=== PATIENT | male | born 1955 | race Caucasian/White ===

== ENCOUNTER 2017-02-28 08:59 | Emergency (ER) | payer OTHER ==
[~2017-02-28] VITALS: Ht 190.5 cm; Wt 105.0 kg
[2017-02-28 09:04] VITALS: BP 158/101; PULSE 68; RESP 18; TEMP 97.7; O2SAT 98
[2017-02-28] MEDS ORDERED: DICL1CAP3 PO (09:50)
[2017-02-28] MEDS ORDERED: VITA400T14 PO (09:50)
[2017-02-28] MEDS ORDERED: ASPI81CH CHEW (09:50)
[2017-02-28] MEDS ORDERED: ADAL1INJ SQ (09:50)
[2017-02-28] MEDS ORDERED: STOMACH PILL (09:50)
[2017-02-28] MEDS ORDERED: ASPIRIN 325 MG TAB PO ONE (10:15)
[2017-02-28 10:25] VITALS: BP 133/95; PULSE 55; RESP 20; O2SAT 98
[2017-02-28 10:47] LABS: AUTOMATED NEUTROPHIL # 1.5 TH/MM3 (1.8-7.7); BASOPHIL % 1.2 % (0.0-2.0); EOSINOPHIL # 0.3 TH/MM3 (0-0.4); HEMATOCRIT 39.9 % (39.0-51.0); HEMO FLAGS DIFF FINAL; LYMPH % 40.5 % (9.0-44.0); LYMPHOCYTE # 1.7 TH/MM3 (1.0-4.8); MEAN CELL VOLUME 87.9 FL (80.0-100.0); MEAN CORPUSCULAR HEMOGLOBIN 30.3 PG (27.0-34.0); MEAN CORPUSCULAR HGB CONC 34.4 % (32.0-36.0); MONO % 11.5 % (0.0-8.0); NEUT % 38.8 % (16.0-70.0); PLATELET COUNT 152 TH/MM3 (150-450); RED BLOOD COUNT 4.54 MIL/MM3 (4.50-5.90); RED CELL DISTRIBUTION WIDTH 11.5 % (11.6-17.2); WHITE BLOOD COUNT 3.9 TH/MM3 (4.0-11.0)
[2017-02-28 10:52] LABS: CHLORIDE 106 MEQ/L (98-107); POTASSIUM 4.6 MEQ/L (3.5-5.1); SODIUM (NA) 140 MEQ/L (136-145)
[2017-02-28 10:55] LABS: ANION GAP 6 MEQ/L (5-15); BICARBONATE 27.7 MEQ/L (21.0-32.0); BLOOD UREA NITROGEN 18 MG/DL (7-18)
[2017-02-28 10:59] LABS: GLOMERULAR FILTRATION RATE 80 ML/MIN (>89)
--- NOTE | 2017-02-28 11:04 | RADRPT ---
EXAM DATE/TIME: 02/28/2017 10:32 [facility] COMPARISON: No previous studies available for comparison. INDICATIONS : Chest Pain MEDICAL HISTORY : Hypertension. SURGICAL HISTORY : None. ENCOUNTER: Initial ACUITY: 1 year PAIN SCORE: 4/10 LOCATION: Bilateral chest FINDINGS: A single view of the chest demonstrates the lungs to be symmetrically aerated without evidence of mas s, infiltrate or effusion. The cardiomediastinal contours are unremarkable. Osseous structures are intact. CONCLUSION: No acute disease. Abelardo Aguayo MD FACR on February 28, 2017 at 11:02 Board Certified Radiologist. This report was verified electronically.
--- NOTE | 2017-02-28 11:29 | PD ---
HPI Chief Complaint: Chest Pain Time Seen by Provider: 09:49 Travel History International Travel<30 days: No Contact w/Intl Traveler<30days: No Traveled to known affect area: No History of Present Illness HPI This 61-year-old male presents with complaint of chest pain. He's been having pain in his chest off and on for double months. He is not sought any treatment for it. He does not smoke cigarettes, and he smokes pot occasionally. He does have family history of heart disease. His father at the age of 63 of a heart attack. The pain he has is not exertional. It is on the left side of the chest. It is brought on by stress. It can last for hours at a time. There is no associated shortness of breath. There is no diaphoresis. Pain seems to ease up when he raises his arms over his head. He is a disabled secondary to rheumatoid arthritis [facility] Past Medical History GERD: Yes Hypertension: Yes Medical other: Yes (PSORIATIC ARTHRITIS, RA) Past Surgical History Other Surgery: Yes (NOSE, FATTY TUMORS REMOVED) Social History Alcohol Use: Yes Tobacco Use: No Substance Use: Yes (MARIJUANA) Allergies-Medications (Allergen,Severity, Reaction): Coded Allergies: gabapentin (Verified Allergy, Unknown, 02/28/17) Reported Meds & Prescriptions Reported Meds & Active Scripts Active Reported Humira 2-Pack Inj (Adalimumab 2-Pack Inj) 10 Mg/0.2 Ml Syr Unknown Dose SQ Q14D Vitamin D2 (Ergocalciferol) 400 Unit Tab Unknown Dose PO DAILY Aspirin 81 Mg Chew Unknown Dose CHEW DAILY [Stomach Pill] Zorvolex (Diclofenac) 18 Mg Cap Unknown Dose PO TID Review of Systems General / Constitutional: No: Fever, Chills Eyes: No: Diploplia, Blurred Vision HENT: No: Headaches, Vertigo Cardiovascular: Positive: Chest Pain or Discomfort, No: Palpitations, Edema Respiratory: No: Cough Gastrointestinal: No: Vomiting, Diarrhea Genitourinary: No: Urgency, Frequency Musculoskeletal: No: Myalgias, Arthralgias Skin: No Rash, No Itching Neurologic: No: Weakness Psychiatric: No: Anxiety, Substance Abuse Hematologic/Lymphatic: No: Easy Bruising Physical Exam Narrative GENERAL: Well-developed male SKIN: Focused skin assessment warm/dry. HEAD: Atraumatic. Normocephalic. EYES: Pupils equal and round. No scleral icterus. No injection or drainage. ENT: No nasal bleeding or discharge. Mucous membranes pink and moist. NECK: Trachea midline. No JVD. CARDIOVASCULAR: Regular rate and rhythm. No murmur appreciated. RESPIRATORY: No accessory muscle use. Clear to auscultation. Breath sounds equal bilaterally. There is some tenderness in the left costochondral area GASTROINTESTINAL: Abdomen soft, non-tender, nondistended. Hepatic and splenic margins not palpable. MUSCULOSKELETAL: No obvious deformities. No clubbing. No cyanosis. No edema. NEUROLOGICAL: Awake and alert. No obvious cranial nerve deficits. Motor grossly within normal limits. Normal speech. PSYCHIATRIC: Appropriate mood and affect; insight and judgment normal. Data Data Last Documented VS Vital Signs Date Time Temp Pulse Resp B/P (MAP) Pulse Ox O2 Delivery O2 Flow Rate FiO2 02/28/17 10:25 55 20 133/95 (108) 98 02/28/17 09:04 97.7 Orders Orders Electrocardiogram (02/28/17 10:03) Complete Blood Count With Diff (02/28/17 10:03) Basic Metabolic Panel (Bmp) (02/28/17 10:03) Troponin I (02/28/17 10:03) Chest, Single Ap (02/28/17 10:03) Aspirin (Aspirin) (02/28/17 10:15) Labs Laboratory Tests Test 02/28/17 10:20 White Blood Count 3.9 TH/MM3 Red Blood Count 4.54 MIL/MM3 Hemoglobin 13.7 GM/DL Hematocrit 39.9 % Mean Corpuscular Volume 87.9 FL Mean Corpuscular Hemoglobin 30.3 PG Mean Corpuscular Hemoglobin Concent 34.4 % Red Cell Distribution Width 11.5 % Platelet Count 152 TH/MM3 Mean Platelet Volume 8.6 FL Neutrophils (%) (Auto) 38.8 % Lymphocytes (%) (Auto) 40.5 % Monocytes (%) (Auto) 11.5 % Eosinophils (%) (Auto) 8.0 % Basophils (%) (Auto) 1.2 % Neutrophils # (Auto) 1.5 TH/MM3 Lymphocytes # (Auto) 1.7 TH/MM3 Monocytes # (Auto) 0.4 TH/MM3 Eosinophils # (Auto) 0.3 TH/MM3 Basophils # (Auto) 0.0 TH/MM3 CBC Comment DIFF FINAL Differential Comment Blood Urea Nitrogen 18 MG/DL Creatinine 0.96 MG/DL Random Glucose 89 MG/DL Calcium Level 8.7 MG/DL Sodium Level 140 MEQ/L Potassium Level 4.6 MEQ/L Chloride Level 106 MEQ/L Carbon Dioxide Level 27.7 MEQ/L Anion Gap 6 MEQ/L Estimat Glomerular Filtration Rate 80 ML/MIN Troponin I LESS THAN 0.02 NG/ML MDM Medical Decision Making Medical Screen Exam Complete: Yes Emergency Medical Condition: Yes Medical Record Reviewed: Yes Differential Diagnosis Differential includes chest wall pain, coronary artery disease Narrative Course Chest x-ray is negative. EKG normal sinus rhythm. Troponin is normal. I discussed chest pain center admission with the patient however he has to care for his mother at this time. His pain is been fairly stable for some time and I think he can be followed up as an outpatient. [facility]. I have advised him to return if increasing chest pain. His pain is somewhat atypical and I suspect it might be chest wall pain related to rheumatoid arthritis. Diagnosis Primary Impression: Chest pain Qualified Codes: R07.9 - Chest pain, unspecified Additional Instructions: Return if increasing chest pain. [facility] Dis[facility] 01 DISCHARGE HOME Condition: Stable Paul Wu MD Feb 28, 2017 11:29
[2017-03-01] MEDS ORDERED: OMEP40CA2 PO (09:49)
--- NOTE | 2017-03-01 13:10 | EKG ---
Date Performed: 02/28/2017 Time Performed: 09:14:24 PTAGE: 61 years EKG: NO FURTHER INTERPRETATION POSSIBLE ATYPICAL ECG WARNING: DATA QUALITY MAY AFFECT INTERPRETA TION NO PREVIOUS TRACING DOCTOR: Lindy Keyes Interpretating Date/Time 03/01/2017 13:07:59
== END 2017-02-28 11:40 | disposition home or self-care (01) ==
LOC: PHED 08:59
DX: R07.9 Chest pain, unspecified (principal); M06.9 Rheumatoid arthritis, unspecified; I10 Essential (primary) hypertension; Z87.39 Personal history of other diseases of the musculoskeletal system and connective tissue; Z87.19 Personal history of other diseases of the digestive system
CPT/HCPCS: 71010; 80048; 84484; 85025; 93005; 99285

== ENCOUNTER 2017-03-01 09:24 | Observation (INO) | payer OTHER ==
[2017-03-01] VITALS (8 sets, daily range): BP systolic 133–144; BP diastolic 93–99; PULSE 58–66; RESP 16–20; TEMP 97.2–98.4; O2SAT 94–98
[~2017-03-01] VITALS: Ht 190.5 cm; Wt 104.2 kg
[~2017-03-01 09:24] MED LIST: ADAL1INJ SQ; ASPI81CH CHEW; DICL1CAP3 PO; STOMACH PILL; VITA400T14 PO
[2017-03-01] MEDS ORDERED: OMEP40CA2 PO (09:49)
[2017-03-01] MEDS ORDERED: ASPIRIN 81 MG CHEW TAB PO ONE (10:00)
[2017-03-01] MEDS ORDERED: NITROGLYCERIN 0.4 MG SL 25 TABS/BTL SL ONE (10:00)
[2017-03-01] MEDS ORDERED: SODIUM CHLORIDE 0.9% FLUSH 10 ML FLUSH IVF PRN (10:00)
--- NOTE | 2017-03-01 10:07 | PD ---
HPI Chief Complaint: Chest Pain Time Seen by Provider: 09:40 Travel History International Travel<30 days: No Contact w/Intl Traveler<30days: No Traveled to known affect area: No History of Present Illness HPI 61 y/o male presents with continued chest pain since he was here yesterday. He states he was able to talk with his mother and arrange care so he is back today to get further testing. He confirms that he has been having chest pain intermittently for a couple months. He states that currently is 4 out of 10. He took a baby aspirin prior to arrival. He denies having any prior cardiac workup. His cardiac risk factors or hypertension, age, family history. Quality of pain is pressure. Location is left chest and arm. He denies specific modifying factors other than worse with stress. PFSH Past Medical History Diminished Hearing: No GERD: Yes Hypertension: Yes Tetanus Vaccination: Unknown Influenza Vaccination: No Past Surgical History Other Surgery: Yes (NOSE, FATTY TUMORS REMOVED) Social History Alcohol Use: Yes Tobacco Use: No Substance Use: Yes (MARIJUANA) Allergies-Medications (Allergen,Severity, Reaction): Coded Allergies: gabapentin (Verified Allergy, Unknown, 02/28/17) Reported Meds & Prescriptions Reported Meds & Active Scripts Active Reported Omeprazole 40 Mg Cap 40 Mg PO DAILY Humira 2-Pack Inj (Adalimumab 2-Pack Inj) 10 Mg/0.2 Ml Syr Unknown Dose SQ Q14D Vitamin D2 (Ergocalciferol) 400 Unit Tab Unknown Dose PO DAILY Aspirin 81 Mg Chew Unknown Dose CHEW DAILY Zorvolex (Diclofenac) 18 Mg Cap Unknown Dose PO TID Review of Systems Except as stated in HPI: all other systems reviewed are Neg Physical Exam Narrative GENERAL: Well-nourished, well-developed patient. SKIN: Warm and dry. HEAD: Normocephalic and atraumatic. EYES: No injection or drainage. ENT: No nasal drainage noted. NECK: Supple, trachea midline. CARDIOVASCULAR: Regular rate and rhythm RESPIRATORY: Breath sounds equal bilaterally. No accessory muscle use. GASTROINTESTINAL: Abdomen soft, non-tender, nondistended. EXTREMITIES: No edema. BACK: Nontender without obvious deformity. NEUROLOGICAL: Awake and alert. Motor and sensory grossly within normal limits. Normal speech. Data Data Last Documented VS Vital Signs Date Time Temp Pulse Resp B/P (MAP) Pulse Ox O2 Delivery O2 Flow Rate FiO2 03/01/17 10:03 97 03/01/17 09:50 59 16 03/01/17 09:45 98.1 Orders Orders Electrocardiogram (03/01/17 09:49) Ckmb (Isoenzyme) Profile (03/01/17 09:49) Complete Blood Count With Diff (03/01/17 09:49) Comprehensive Metabolic Panel (03/01/17 09:49) Magnesium (Mg) (03/01/17 09:49) Prothrombin Time / Inr (Pt) (03/01/17 09:49) Act Partial Throm Time (Ptt) (03/01/17 09:49) Troponin I (03/01/17 09:49) Lipase (03/01/17 09:49) Chest, Single Ap (03/01/17 09:49) Ecg Monitoring (03/01/17 09:49) Bilateral Bp Monitoring (03/01/17 09:49) Iv Access Insert/Monitor (03/01/17 09:49) Oximetry (03/01/17 09:49) Aspirin Chew (Aspirin Chew) (03/01/17 10:00) Sodium Chloride 0.9% Flush (Ns Flush) (03/01/17 10:00) Nitroglycerin Sl (Nitrostat Sl) (03/01/17 10:00) Place In Observation (03/01/17 11:12) Activity Bed Rest With Brp (03/01/17 11:12) Vital Signs (Adult) Q4H (03/01/17 11:12) Cardiac Rhythm .As Directed (03/01/17 11:12) Notify Dr: Other .PRN (03/01/17 11:12) Notify Parameters (03/01/17 11:12) Resp Oxygen Nasal Cannula (03/01/17 ) Diet Heart Healthy (03/01/17 Lunch) Electrocardiogram (03/01/17 11:12) Electrocardiogram (03/01/17 14:12) ^ Obtain (03/01/17 11:12) Sodium Chloride 0.9% Flush (Ns Flush) (03/01/17 11:15) Sodium Chloride 0.9% Flush (Ns Flush) (03/01/17 21:00) Acetaminophen (Tylenol) (03/01/17 11:15) Ondansetron Inj (Zofran Inj) (03/01/17 11:15) Nitroglycerin Sl (Nitrostat Sl) (03/01/17 11:15) Aspirin (Aspirin) (03/02/17 09:00) Project Scientist / Telemetry CHANEL.Q8H (03/01/17 11:12) Scd Bilateral/Knee High CHANEL.BID (03/01/17 11:12) Admit Order (Ed Use Only) (03/01/17 11:13) Troponin I (03/01/17 13:00) Troponin I (03/01/17 16:00) Electrocardiogram (03/01/17 13:00) Electrocardiogram (03/01/17 16:00) Labs Laboratory Tests Test 03/01/17 10:01 White Blood Count 4.1 TH/MM3 Red Blood Count 4.94 MIL/MM3 Hemoglobin 14.5 GM/DL Hematocrit 43.8 % Mean Corpuscular Volume 88.7 FL Mean Corpuscular Hemoglobin 29.3 PG Mean Corpuscular Hemoglobin Concent 33.0 % Red Cell Distribution Width 11.9 % Platelet Count 177 TH/MM3 Mean Platelet Volume 8.8 FL Neutrophils (%) (Auto) 39.2 % Lymphocytes (%) (Auto) 41.6 % Monocytes (%) (Auto) 10.0 % Eosinophils (%) (Auto) 8.2 % Basophils (%) (Auto) 1.0 % Neutrophils # (Auto) 1.6 TH/MM3 Lymphocytes # (Auto) 1.8 TH/MM3 Monocytes # (Auto) 0.4 TH/MM3 Eosinophils # (Auto) 0.3 TH/MM3 Basophils # (Auto) 0.0 TH/MM3 CBC Comment DIFF FINAL Differential Comment Prothrombin Time 10.9 SEC Prothromb Time International Ratio 1.0 RATIO Activated Partial Thromboplast Time 27.3 SEC Blood Urea Nitrogen 18 MG/DL Creatinine 0.93 MG/DL Random Glucose 93 MG/DL Total Protein 7.6 GM/DL Albumin 3.7 GM/DL Calcium Level 8.4 MG/DL Magnesium Level 2.1 MG/DL Alkaline Phosphatase 55 U/L Aspartate Amino Transf (AST/SGOT) 14 U/L Alanine Aminotransferase (ALT/SGPT) 19 U/L Total Bilirubin 0.4 MG/DL Sodium Level 140 MEQ/L Potassium Level 4.0 MEQ/L Chloride Level 106 MEQ/L Carbon Dioxide Level 26.3 MEQ/L Anion Gap 8 MEQ/L Estimat Glomerular Filtration Rate 83 ML/MIN Total Creatine Kinase 100 U/L Troponin I LESS THAN 0.02 NG/ML Lipase 173 U/L MDM Medical Decision Making Medical Screen Exam Complete: Yes Emergency Medical Condition: Yes Medical Record Reviewed: Yes (past history confirmed, visit from yesterday reviewed) Interpretation(s) EKG shows sinus bradycardia at 55, no ST elevation or depression, and no arrhythmias. No significant T-wave inversions. CBC & BMP Diagram 03/01/17 10:01 Total Protein 7.6, Albumin 3.7, Calcium Level 8.4 L, Magnesium Level 2.1, Alkaline Phosphatase 55, Aspartate Amino Transf (AST/SGOT) 14 L, Alanine Aminotransferase (ALT/SGPT) 19, Total Bilirubin 0.4 Last 24 hours Impressions Chest X-Ray 03/01/17 0949 Signed Impressions: Service Date/Time: Wednesday, March 01, 2017 09:55 - CONCLUSION: No acute disease. No significant change has occurred. Jerel Ocasio MD Differential Diagnosis Cardiac, musculoskeletal, gastritis Narrative Course Will check blood work, chest x-ray, EKG and dose with aspirin and nitroglycerin and reevaluate Initial ER testing is negative here, agrees to chest pain center observation Physician Communication Physician Communication dr chadwick agrees to observation Diagnosis Primary Impression: Chest pain Qualified Codes: R07.9 - Chest pain, unspecified Admitting Information Admitting Physician Requests: Observation Brunilda Gil MD Mar 01, 2017 10:06
[2017-03-01 10:10] LABS: AUTOMATED NEUTROPHIL # 1.6 TH/MM3 (1.8-7.7); EOSINOPHIL # 0.3 TH/MM3 (0-0.4); EOSINOPHIL % 8.2 % (0.0-4.0); HEMATOCRIT 43.8 % (39.0-51.0); HEMO FLAGS DIFF FINAL; LYMPH % 41.6 % (9.0-44.0); LYMPHOCYTE # 1.8 TH/MM3 (1.0-4.8); MEAN CELL VOLUME 88.7 FL (80.0-100.0); MEAN CORPUSCULAR HEMOGLOBIN 29.3 PG (27.0-34.0); NEUT % 39.2 % (16.0-70.0); PLATELET COUNT 177 TH/MM3 (150-450); RED BLOOD COUNT 4.94 MIL/MM3 (4.50-5.90); RED CELL DISTRIBUTION WIDTH 11.9 % (11.6-17.2); WHITE BLOOD COUNT 4.1 TH/MM3 (4.0-11.0)
--- NOTE | 2017-03-01 10:15 | RADRPT ---
EXAM DATE/TIME: 03/01/2017 09:55 [facility] COMPARISON: CHEST SINGLE AP, February 28, 2017, 10:32. INDICATIONS : Continued left side chest pain after being seen here yesterday. MEDICAL HISTORY : Hypertension. Gastroesophageal reflux disease. Psoriatic Arthritis. SURGICAL HISTORY : Fused right wrist. ENCOUNTER: [facility] ACUITY: 2 days PAIN SCORE: 4/10 LOCATION: Left chest FINDINGS: A single view of the chest demonstrates the lungs to be symmetrically aerated without evidence of mas s, infiltrate or effusion. The cardiomediastinal contours are unremarkable. Osseous structures are intact. CONCLUSION: No acute disease. No significant change has occurred. Jerel Ocasio MD on March 01, 2017 at 10:13 Board Certified Radiologist. This report was verified electronically.
[2017-03-01 10:18] LABS: CHLORIDE 106 MEQ/L (98-107); SODIUM (NA) 140 MEQ/L (136-145)
[2017-03-01 10:23] LABS: ANION GAP 8 MEQ/L (5-15); APTT (PATIENT) 27.3 SEC (24.3-30.1); BICARBONATE 26.3 MEQ/L (21.0-32.0); BLOOD UREA NITROGEN 18 MG/DL (7-18); MAGNESIUM 2.1 MG/DL (1.5-2.5); PROTHROMBIN TIME - PATIENT 10.9 SEC (9.8-11.6)
[2017-03-01 10:25] LABS: ALT (GPT) 19 U/L (12-78); AST (GOT) 14 U/L (15-37)
[2017-03-01 10:26] LABS: GLOMERULAR FILTRATION RATE 83 ML/MIN (>89)
[2017-03-01 10:27] LABS: TOTAL BILIRUBIN ADULT 0.4 MG/DL (0.2-1.0)
[2017-03-01 10:28] LABS: ALKALINE PHOSPHATASE 55 U/L (45-117)
[2017-03-01 10:55] LABS: CREATINE KINASE 100 U/L (39-308)
[2017-03-01] MEDS ORDERED: NITROGLYCERIN 0.4 MG SL 25 TABS/BTL SL PRN (11:15)
[2017-03-01] MEDS ORDERED: SODIUM CHLORIDE 0.9% FLUSH 10 ML FLUSH IV FLUSH PRN (11:15)
[2017-03-01] MEDS ORDERED: ONDANSETRON HCL 4 MG/2 ML VIAL IV PRN (11:15)
[2017-03-01] MEDS ORDERED: ACETAMINOPHEN 500 MG CPLT PO PRN (11:15)
--- NOTE | 2017-03-01 14:11 | HHI.HP ---
[facility] Service [place] [facility] Primary Care Physician Luz Elena [facility] Admission Diagnosis chest pain Diagnoses: Chief Complaint: Chest pain. Travel History International Travel<30 Days: No Contact w/Intl Traveler <30 Da: No Traveled to Known Affected Are: No History of Present Illness Mr. Harrington is a pleasant 61 year old with a history of rheumatoid arthritis who presents to the ED due to chronic chest pain. Patient came to the emergency department yesterday and was offered stress test. However he takes care of his elderly mother and and thus went home yesterday. Patient reports a stabbing constant left-sided chest pain that has been going on for almost 1 year. Sometimes he feels pain on his left upper extremity. Any kind of aggravation makes his pain worse. On the other hand when he rides his motorcycle, he feels relief of his chest discomfort. He reports no worsening of symptoms with exertion. He also gets relief of chest discomfort when he moves his left arm above his head. He denies any nausea or vomiting or diaphoresis associated with this chest discomfort. He has been worried about chest pain since his father from a heart attack at the age of 63. Patient denies any changes in bowel or bladder habits. Denies any cough, fever or chills. Review of Systems Except as stated in HPI: all other systems reviewed are Neg Past Family Social History Past Medical History Rheumatoid arthritis Osteoarthritis Tendinitis Bilateral foot neuropathy Past Surgical History Lipoma removal Right third toe surgery Surgery on nose after accident. Reported Medications Omeprazole 40 Mg Cap 40 Mg PO DAILY Humira 2-Pack Inj (Adalimumab 2-Pack Inj) 10 Mg/0.2 Ml Syr Unknown Dose SQ Q14D Vitamin D2 (Ergocalciferol) 400 Unit Tab Unknown Dose PO DAILY Aspirin 81 Mg Chew Unknown Dose CHEW DAILY Zorvolex (Diclofenac) 18 Mg Cap Unknown Dose PO TID Allergies: Coded Allergies: gabapentin (Verified Allergy, Unknown, 02/28/17) Family History Father from myocardial infarction at age 63. Mother is 80 and is in relatively good health. Social History Patient does not use tobacco products. He smokes marijuana daily. Drinks alcohol occasionally. Physical Exam Vital Signs Vital Signs Date Time Temp Pulse Resp B/P (MAP) Pulse Ox O2 Delivery O2 Flow Rate FiO2 03/01/17 12:19 03/01/17 10:03 97 03/01/17 09:55 144/93 (110) 03/01/17 09:50 59 16 99 03/01/17 09:45 98.1 63 16 140/95 (110) 98 Physical Exam GENERAL: This is a well-nourished, well-developed patient, in no apparent distress. SKIN: No rashes, ecchymoses or lesions. Warm and dry. HEAD: Atraumatic. Normocephalic. No temporal or scalp tenderness. EYES: Pupils equal round and reactive. No injection or drainage. ENT: Nose without bleeding, purulent drainage or septal hematoma. Airway patent. NECK: Trachea midline. No lymphadenopathy. Supple, nontender, no meningeal signs. CARDIOVASCULAR: Regular rate and rhythm without murmurs, gallops, or rubs. No JVD. RESPIRATORY: Clear to auscultation. Breath sounds equal bilaterally. No wheezes , rales, or rhonchi. GASTROINTESTINAL: Abdomen soft, non-tender, nondistended. No guarding. MUSCULOSKELETAL: Extremities without clubbing, cyanosis, or edema. NEUROLOGICAL: Awake and alert. Cranial nerves II through XII intact. No focal neurological deficits. Normal speech. Laboratory Laboratory Tests Test 03/01/17 10:01 03/01/17 13:30 White Blood Count 4.1 Red Blood Count 4.94 Hemoglobin 14.5 Hematocrit 43.8 Mean Corpuscular Volume 88.7 Mean Corpuscular Hemoglobin 29.3 Mean Corpuscular Hemoglobin Concent 33.0 Red Cell Distribution Width 11.9 Platelet Count 177 Mean Platelet Volume 8.8 Neutrophils (%) (Auto) 39.2 Lymphocytes (%) (Auto) 41.6 Monocytes (%) (Auto) 10.0 Eosinophils (%) (Auto) 8.2 Basophils (%) (Auto) 1.0 Neutrophils # (Auto) 1.6 Lymphocytes # (Auto) 1.8 Monocytes # (Auto) 0.4 Eosinophils # (Auto) 0.3 Basophils # (Auto) 0.0 CBC Comment DIFF FINAL Differential Comment Prothrombin Time 10.9 Prothromb Time International Ratio 1.0 Activated Partial Thromboplast Time 27.3 Blood Urea Nitrogen 18 Creatinine 0.93 Random Glucose 93 Total Protein 7.6 Albumin 3.7 Calcium Level 8.4 Magnesium Level 2.1 Alkaline Phosphatase 55 Aspartate Amino Transf (AST/SGOT) 14 Alanine Aminotransferase (ALT/SGPT) 19 Total Bilirubin 0.4 Sodium Level 140 Potassium Level 4.0 Chloride Level 106 Carbon Dioxide Level 26.3 Anion Gap 8 Estimat Glomerular Filtration Rate 83 Total Creatine Kinase 100 Troponin I LESS THAN 0.02 Lipase 173 Result Diagram: 03/01/17 1001 03/01/17 1001 Imaging Last Impressions Chest X-Ray 03/01/17 0949 Signed Impressions: Service Date/Time: Wednesday, March 01, 2017 09:55 - CONCLUSION: No acute disease. No significant change has occurred. MD Adarsh Sesay VTE Risk Assessment Adarsh VTE Risk Assessment: No/Low Risk (score <= 1) Caprini Risk Assessment Model Point Value = 1 Point Value = 2 Point Value = 3 Point Value = 5 Age 41-60 Minor surgery BMI > 25 kg/m2 Swollen legs Varicose veins or History of unexplained or recurrent spontaneous Oral contraceptives or hormone replacement Sepsis (< 1 month) Serious lung disease, including pneumonia (< 1 month) Abnormal pulmonary function Acute myocardial infarction Congestive heart failure (< 1 month) History of inflammatory bowel disease Medical patient at bed rest Age 61-74 Arthroscopic surgery Major open surgery (> 45 min) Laparoscopic surgery (> 45 min) Malignancy Confined to bed (> 72 hours) Immobilizing plaster cast Central venous access Age >= 75 History of VTE Family history of VTE Factor V Leiden Prothrombin [id number] Lupus anticoagulant Anticardiolipin antibodies Elevated serum homocysteine Heparin-induced thrombocytopenia Other congenital or acquired thrombophilia Stroke (< 1 month) Elective arthroplasty Hip, pelvis, or leg fracture Acute spinal cord injury (< 1 month) Prophylaxis Regimen Total Risk Factor Score Risk Level Prophylaxis Regimen 0-1 Low Early ambulation 2 Moderate Order ONE of the following: *Sequential Compression Device (SCD) *Heparin 5000 units SQ BID 3-4 Higher Order ONE of the following medications: *Heparin 5000 units SQ TID *Enoxaparin/Lovenox 40 mg SQ daily (WT < 150 kg, CrCl > 30 mL/min) *Enoxaparin/Lovenox 30 mg SQ daily (WT < 150 kg, CrCl > 10-29 mL/min) *Enoxaparin/Lovenox 30 mg SQ BID (WT < 150 kg, CrCl > 30 mL/min) AND/OR *Sequential Compression Device (SCD) 5 or more Highest Order ONE of the following medications: *Heparin 5000 units SQ TID (Preferred with Epidurals) *Enoxaparin/Lovenox 40 mg SQ daily (WT < 150 kg, CrCl > 30 mL/min) *Enoxaparin/Lovenox 30 mg SQ daily (WT < 150 kg, CrCl > 10-29 mL/min) *Enoxaparin/Lovenox 30 mg SQ BID (WT < 150 kg, CrCl > 30 mL/min) AND *Sequential Compression Device (SCD) Assessment and Plan Problem List: (1) Osteoarthritis ICD Code: M19.90 - Unspecified osteoarthritis, unspecified site (2) Rheumatoid arthritis ICD Code: M06.9 - Rheumatoid arthritis, unspecified (3) Chest pain ICD Code: R07.9 - Chest pain, unspecified Status: Acute Assessment and Plan Mr. Harrington is a pleasant 61-year-old who presents to the emergency department due to chronic chest discomfort. His chest discomfort has mostly atypical features. However due to history of rheumatoid arthritis as well as family history of heart disease patient was admitted for further workup. - Chest pain - Mostly atypical features. However increased risk due to age, family history, rheumatoid arthritis, smoking. - Chest x-ray reviewed by me. Shows no acute abnormalities. Reviewed labs including CBC and CMP. - Continue aspirin 81 mg daily. Patient received aspirin 243 mg in the emergency department. - Nitroglycerin sublingual when necessary - We'll obtain a nuclear perfusion study in the morning. - Also obtain lipid profile in the morning. - Rheumatoid arthritis - Osteoarthritis - Patient can continue home medications including Humira upon discharge. Full code. SCDs. Likely discharge tomorrow after Nuclear perfusion study. Problem Qualifiers (1) Chest pain: Qualified Codes: R07.9 - Chest pain, unspecified Heike Mak DO Mar 01, 2017 14:11
[2017-03-01] MEDS: SODIUM CHLORIDE 0.9% FLUSH 10 ML FLUSH IV FLUSH SCH (21:52)
[2017-03-02] VITALS: BP 128/91; PULSE 59; RESP 18; TEMP 97.7; O2SAT 98
[2017-03-02 04:00] VITALS: BP 142/92; PULSE 60; RESP 18; TEMP 97.7; O2SAT 96
[2017-03-02 07:00] VITALS: PULSE 58
[2017-03-02 08:00] VITALS: BP 136/87; PULSE 63; RESP 18; TEMP 97.6; O2SAT 97
[2017-03-02 08:20] VITALS: O2SAT 94
[2017-03-02] MEDS: SODIUM CHLORIDE 0.9% FLUSH 10 ML FLUSH IV FLUSH SCH (08:44)
[2017-03-02] MEDS ORDERED: ASPIRIN 81 MG CHEW TAB PO SCH (09:00)
[2017-03-02] MEDS ORDERED: PANTOPRAZOLE SOD 40 MG DELAYED RELEASE TAB PO SCH (09:00)
[2017-03-02] MEDS ORDERED: INFLUENZA VIRUS VACCINE (QUADRIVALENT) 0.5 ML SYR IM ONE (10:00)
--- NOTE | 2017-03-02 10:51 | RADRPT ---
EXAM DATE/TIME: 03/02/2017 09:17 [facility] COMPARISON: No previous studies available for comparison. INDICATIONS : Left sided chest pain radiating to the left arm. Angina. DOSE: 35 mCi Tc99m Myoview at stress. 11 mCi Tc99m Myoview at rest. 0.4 mg Lexiscan STRESS SYMPTOMS: Flushed. EJECTION FRACTION: 58% MEDICAL HISTORY : Hypertension. SURGICAL HISTORY : Right foot surgery. ENCOUNTER: Initial ACUITY: 1 day PAIN SCALE: 4/10 LOCATION: Left chest TECHNIQUE: The patient underwent pharmacologic stress with infusion of prescribed dose. Continuous ECG tracing was monitored during stress. Gated SPECT imaging was performed after stress and conventional SPECT i maging was performed at rest. The examination was performed on a SPECT/CT scanner, both attenuation and non-corrected datasets were reviewed. FINDINGS: DISTRIBUTION: The maximum perfused segment at stress is in the lateral wall and septum. Moderate gut activity does obscure the inferior wall. There is no redistribution. GATED STUDY: There is intact wall motion and thickening without hypokinetic or dyskinetic segments. CONCLUSION: Negative for stress-induced ischemia. RISK CATEGORY: Low (<1% Annual Mortality Rate) Abelardo Aguayo MD FACR on March 02, 2017 at 10:48 Board Certified Radiologist. This report was verified electronically.
--- NOTE | 2017-03-02 10:59 | HHI.DCPOC ---
Discharge Care Plan Diagnosis: (1) Chest pain Your Health Problems Are: Chest Pain Goals to Promote Your Health * To prevent worsening of your condition and complications * To maintain your health at the optimal level Directions to Meet Your Goals Take your medications as prescribed Follow your dietary instruction Follow activity as directed Keep your appointments as scheduled Take your immunizations and boosters as scheduled If your symptoms worsen call your PCP, if no PCP go to Urgent Care Center or Emergency Room Smoking is Dangerous to Your Health. Avoid second hand smoke Call the 24-hour hour crisis hotline for domestic abuse at Jon Brown Mar 02, 2017 10:59
[2017-03-02] MEDS ORDERED: REGADENOSON INJ 0.4 MG/5 ML SYR IV ONE (11:16)
[2017-03-02 12:00] VITALS: BP 137/88; PULSE 64; RESP 18; TEMP 97.5; O2SAT 95
--- NOTE | 2017-03-02 12:29 | HHI.DS ---
Discharge Summary Admission Date Mar 01, 2017 at 11:15 Discharge Date: Mar 02, 2017 Admitting Diagnosis chest pain (1) Osteoarthritis ICD Code: M19.90 - Unspecified osteoarthritis, unspecified site (2) Rheumatoid arthritis ICD Code: M06.9 - Rheumatoid arthritis, unspecified (3) Chest pain ICD Code: R07.9 - Chest pain, unspecified Status: Acute Procedures none Brief History - From Admission Mr. Harrington is a pleasant 61 year old [place] with a history of rheumatoid arthritis who presents to the ED due to chronic chest pain. Patient came to the emergency department yesterday and was offered stress test. However he takes care of his elderly mother and and thus went home yesterday. Patient reports a stabbing constant left-sided chest pain that has been going on for almost 1 year. Sometimes he feels pain on his left upper extremity. Any kind of aggravation makes his pain worse. On the other hand when he rides his motorcycle, he feels relief of his chest discomfort. He reports no worsening of symptoms with exertion. He also gets relief of chest discomfort when he moves his left arm above his head. He denies any nausea or vomiting or diaphoresis associated with this chest discomfort. He has been worried about chest pain since his father from a heart attack at the age of 63. Patient denies any changes in bowel or bladder habits. Denies any cough, fever or chills. CBC/BMP: 03/01/17 1001 03/01/17 1001 Significant Findings Laboratory Tests Test 03/01/17 10:01 03/01/17 13:30 03/01/17 16:05 03/02/17 07:55 Monocytes (%) (Auto) 10.0 % (0.0-8.0) Eosinophils (%) (Auto) 8.2 % (0.0-4.0) Neutrophils # (Auto) 1.6 TH/MM3 (1.8-7.7) Calcium Level 8.4 MG/DL (8.5-10.1) Aspartate Amino Transf (AST/SGOT) 14 U/L (15-37) Estimat Glomerular Filtration Rate 83 ML/MIN (>89) Troponin I LESS THAN 0.02 NG/ML LESS THAN 0.02 NG/ML LESS THAN 0.02 NG/ML LDL Cholesterol 108 MG/DL (0-99) Imaging Last Impressions Myocardial Perfusion Scan Nuc Med 03/02/17 0600 Signed Impressions: Service Date/Time: Thursday, March 02, 2017 09:17 - CONCLUSION: Negative for stress-induced ischemia. RISK CATEGORY: Low (<1%% Annual Mortality Rate) Abelardo Aguayo MD FACR Chest X-Ray 03/01/17 0949 Signed Impressions: Service Date/Time: Wednesday, March 01, 2017 09:55 - CONCLUSION: No acute disease. No significant change has occurred. Jerel Ocasio MD PE at Discharge cardiac: rrr, no murmurs resp: cta x 2 gen: NAD msk: no TTP noted over left chest wall, neg leftsided person test Hospital Course pt was admitted, monitored on telemetry, underwent nuclear stress test which was negative. stable vss throughout stay, remained w/ chronic chest pain w/ no substantial worsening on exertion. Deemed clinically stable for discharge, has met maximum benefit from hospitalization. Pt Condition on Discharge: Good Discharge Disposition: Discharge Home Discharge Time: <= 30 minutes Discharge Instructions DIET: Follow Instructions for: Heart Healthy Diet Activities you can perform: Regular-No Restrictions Follow up Referrals: PCP Follow-up - 1 Week Continued Medications: Adalimumab 2-Pack Inj (Humira 2-Pack Inj) 10 Mg/0.2 Ml Syr Unknown Dose SQ Q14D, #1 KIT 0 Refills Aspirin (Aspirin) 81 Mg Chew Unknown Dose CHEW DAILY, TAB 0 Refills Diclofenac (Zorvolex) 18 Mg Cap Unknown Dose PO TID for Pain Management, CAP 0 Refills Ergocalciferol (Vitamin D2) 400 Unit Tab Unknown Dose PO DAILY for Nutritional Supplement, TAB 0 Refills Omeprazole (Omeprazole) 40 Mg Cap 40 MG PO DAILY, #30 CAP 0 Refills Jonh Power MD Mar 02, 2017 12:28
--- NOTE | 2017-03-03 18:18 | TR ---
Date Performed: 03/02/2017 Time Performed: 09:45:43 DOCTOR: Ashanti Ponce DRUG LIST: CLINICAL HISTORY: REASON FOR TEST: REASON FOR ENDING: OBSERVATION: CONCLUSION: Lexiscan stress test was performed under standard four minute protocol. Radionuclid e was injected one minute prior to ending the test. No electrocardiographic abormalities were present to suggest ischemia. Nuclear imaging and interpretation are pending. COMMENTS:
--- NOTE | 2017-03-03 18:23 | EKG ---
Date Performed: 03/01/2017 Time Performed: 16:00:04 PTAGE: 61 years EKG: SINUS BRADYCARDIA BORDERLINE ECG Since PREVIOUS TRACING , no significant change noted PREVIOUS TRACIN03/01/2017 13.42 DOCTOR: Ashanti Ponce Interpretating Date/Time 03/03/2017 18:22:06
--- NOTE | 2017-03-03 18:23 | EKG ---
Date Performed: 03/01/2017 Time Performed: 09:40:09 PTAGE: 61 years EKG: SINUS BRADYCARDIA BORDERLINE LEFT AXIS DEVIATION BORDERLINE ECG NO PREVIOUS TRACING DOCTOR: Ashanti Ponce Interpretating Date/Time 03/03/2017 18:22:46
== END 2017-03-02 13:45 | disposition home or self-care (01) ==
LOC: PHED 09:24 → PHEDA 11:15 → PH3A 12:17
PROVIDERS: ADMIT Hospitalist; ATTEND Hospitalist
DX: R07.89 Other chest pain (principal); M06.9 Rheumatoid arthritis, unspecified; G89.29 Other chronic pain; M19.90 Unspecified osteoarthritis, unspecified site; G62.9 Polyneuropathy, unspecified; M77.9 Enthesopathy, unspecified; K21.9 Gastro-esophageal reflux disease without esophagitis; I10 Essential (primary) hypertension; Z79.82 Long term (current) use of aspirin; Z82.49 Family history of ischemic heart disease and other diseases of the circulatory system
CPT/HCPCS: 71010; 78452; 80053; 80061; 82550; 83690; 83735; 84484; 85025; 85610; 85730; 93005; 93017; 99285; A9502; G0378; J2785